=== PATIENT | female | born 1985 | race Caucasian/White ===

== ENCOUNTER → 2017-02-22 | Outpatient (CLI) | payer OTHER ==
[~2017-02-22] MED LIST: CITA40TA12 PO
[2017-02-22 11:35] LABS: URINE APPEARANCE CLEAR (CLEAR); URINE BILIRUBIN NEG (NEG); URINE COLOR YELLOW; URINE NITRITE NEG (NEG); URINE PH 6.5 (4.5-7.5); URINE SPECIFIC GRAVITY 1.014 (1.000-1.030); UROBILINOGEN NEG (NEG)
[2017-02-22 11:49] LABS: MANUAL MICROSCOPIC REQUIRED? NO; REVIEW REQ? NO
== END | disposition home or self-care (01) ==
LOC: C.LABSPEC 10:56
PROVIDERS: ATTEND Obstetrics & Gynecology
DX: Z34.81 Encounter for supervision of other normal pregnancy, first trimester (principal)

== ENCOUNTER → 2017-02-26 | Outpatient (CLI) | payer OTHER | END | disposition home or self-care (01) | LOC: C.PAPS 07:51 | PROVIDERS: ATTEND Obstetrics & Gynecology | DX: Z34.81 Encounter for supervision of other normal pregnancy, first trimester (principal) ==

== ENCOUNTER → 2017-02-26 | Outpatient (CLI) | payer OTHER ==
[2017-02-26 17:33] LABS: BASO % 0.3 %; BASO ABS # 0.02 K/uL (0-0.2); COMPLETE YES; EOS % 1.1 %; HEMATOCRIT 39.5 % (37-47); IG% 0.3 %; LYMPH % 36.4 %; LYMPH ABS # 2.69 K/uL (1.2-3.4); MEAN CELL VOLUME 86.4 fL (80-100); MEAN CORPUSCULAR HEMOGLOBIN 30.2 pg (25-34); MEAN CORPUSCULAR HGB CONC 34.9 g/dl (32-36); MEAN PLATELET VOLUME 9.8 fL (7.4-10.4); MONO % 6.1 %; NEUT % 55.8 %; PLATELET COUNT 424 K/uL (130-400); RED BLOOD COUNT 4.57 M/uL (4.2-5.4); WHITE BLOOD COUNT 7.38 K/uL (4.8-10.8)
[2017-03-01 11:51] LABS: CHLAMYDIA TRACH RNA*** NOT DETECTED (NOT DETECTED); GC (NEIS GONORRHOEAE)RNA** NOT DETECTED (NOT DETECTED)
== END | disposition home or self-care (01) ==
LOC: C.LAB1850 16:23
PROVIDERS: ATTEND Obstetrics & Gynecology
DX: Z34.81 Encounter for supervision of other normal pregnancy, first trimester (principal)

== ENCOUNTER → 2017-06-22 | Outpatient (CLI) | payer OTHER ==
[2017-06-22 14:24] LABS: URINE APPEARANCE CLEAR (CLEAR); URINE BILIRUBIN NEG (NEG); URINE COLOR YELLOW; URINE NITRITE POS (NEG); URINE PH 6.5 (4.5-7.5); URINE SPECIFIC GRAVITY 1.014 (1.000-1.030); UROBILINOGEN NEG (NEG)
[2017-06-22 14:30] LABS: MANUAL MICROSCOPIC REQUIRED? NO; REVIEW REQ? NO
== END | disposition home or self-care (01) ==
LOC: C.LABSPEC 13:53
PROVIDERS: ATTEND Obstetrics & Gynecology
DX: Z34.82 Encounter for supervision of other normal pregnancy, second trimester (principal)

== ENCOUNTER → 2017-07-06 | Outpatient (CLI) | payer OTHER ==
[2017-07-06 12:08] LABS: HEMATOCRIT 37.2 % (37-47)
== END | disposition home or self-care (01) ==
LOC: C.LAB1850 10:52
PROVIDERS: ATTEND Obstetrics & Gynecology
DX: Z34.82 Encounter for supervision of other normal pregnancy, second trimester (principal); Z3A.00 Weeks of gestation of pregnancy not specified

== ENCOUNTER → 2017-07-20 | Outpatient (CLI) | payer OTHER ==
[~2017-07-20] MED LIST changes: +MTR600X PO; +OXYC-57 PO; +PRENTAB26 PO
== END | disposition home or self-care (01) ==
LOC: C.LABSPEC 13:50
PROVIDERS: ATTEND Obstetrics & Gynecology
DX: O23.40 Unspecified infection of urinary tract in pregnancy, unspecified trimester (principal); Z3A.00 Weeks of gestation of pregnancy not specified

== ENCOUNTER → 2017-08-27 | Outpatient (CLI) | payer OTHER ==
[~2017-08-27] MED LIST changes: -MTR600X PO; -OXYC-57 PO; -PRENTAB26 PO
== END | disposition home or self-care (01) ==
LOC: C.LABSPEC 13:45
PROVIDERS: ATTEND Obstetrics & Gynecology
DX: Z34.83 Encounter for supervision of other normal pregnancy, third trimester (principal)

== ENCOUNTER 2017-09-17 08:38 | Inpatient (IN) | payer OTHER ==
[2017-09-17] VITALS (7 sets, daily range): BP systolic 113–127; BP diastolic 72–82; PULSE 75–80; TEMP 36.4–36.9; O2SAT 96–98; Ht 162.6 cm; Wt 107.3 kg
[~2017-09-17] VITALS: Ht 162.6 cm; Wt 107.3 kg
[~2017-09-17 08:38] MED LIST changes: +CEFAZOLIN IV 3,000 MG in SYRINGE 0 ML IV SCH
[2017-09-17] MEDS ORDERED: PRENTAB26 PO (09:20)
[2017-09-17] MEDS ORDERED: LACTATED RINGER'S 1000ML 1,000 ML IV PRN (09:35)
[2017-09-17] MEDS ORDERED: LACTATED RINGER'S 1000ML 1,000 ML IV SCH (09:35)
[2017-09-17] MEDS ORDERED: LACTATED RINGER'S 1000ML 500 ML IV PRN ×2 (09:38→15:45)
[2017-09-17] MEDS ORDERED: OXYTOCIN 30 UNITS/500ML NSS IV PRN (09:45)
[2017-09-17 10:01] LABS: HEMATOCRIT 35.6 % (37-47); HEMOGLOBIN 12.1 g/dL (12.0-16.0); MEAN CORPUSCULAR HEMOGLOBIN 31.6 pg (25-34); MEAN PLATELET VOLUME 9.6 fL (7.4-10.4); PLATELET COUNT 350 K/uL (130-400); RED CELL DISTRIBUTION WIDTH CV 15.8 % (11.5-14.5); RED CELL DISTRIBUTION WIDTH SD 52.7 fL (36.4-46.3); WHITE BLOOD COUNT 8.24 K/uL (4.8-10.8)
[2017-09-17] MEDS ORDERED: CITRIC ACID/SODIUM CITRATE 15 ML UDC PO ONE (11:45)
[2017-09-17] MEDS ORDERED: LACTATED RINGER'S 1000ML 1,000 ML IV ONE (11:45)
[2017-09-17] MEDS ORDERED: FENTANYL CITRATE INJ 50 MCG/1 ML 2 ML VIAL ONE ×2 (13:51→15:10)
[2017-09-17] MEDS ORDERED: MoRPHine SULFATE PF 1 MG/ML 10 ML AMP/VIAL ONE (13:52)
[2017-09-17] MEDS ORDERED: OXYTOCIN INJ 10 UNITS/ML VIAL ONE ×2 (13:55→15:12)
[2017-09-17] MEDS ORDERED: PROPOFOL IV EMULSION 10 MG/ML 20 ML VIAL IV ONE (14:58)
[2017-09-17] MEDS ORDERED: CISATRACURIUM BESYLATE IV SOLN 2 MG/ML 10 ML VIAL ONE (14:58)
[2017-09-17] MEDS ORDERED: MIDAZOLAM HCL 1 MG/ML 2ML VIAL ONE (14:59)
[2017-09-17] MEDS ORDERED: SUPERCREAM 0.870 % 15GM JAR EXT PRN (15:30)
[2017-09-17] MEDS ORDERED: DIPHTHERIA/TETANUS/PERTUSSIS 0.5 ML SYR/VIAL IM. ONE (15:30)
[2017-09-17] MEDS ORDERED: LANOLIN OINT EXT PRN (15:30)
[2017-09-17] MEDS ORDERED: HYDROCORTISONE ACETATE 25 MG SUPP PR PRN (15:30)
[2017-09-17] MEDS ORDERED: BENZOCAINE 20% AER SPR 82.5 GM CAN EXT PRN (15:30)
[2017-09-17] MEDS ORDERED: GLYCOPYRROLATE INJ 0.2 MG/ML VIAL ONE (15:31)
[2017-09-17] MEDS ORDERED: NEOSTIGMINE METHYLSULFATE 5 MG/5 ML SYR ONE (15:31)
--- NOTE | 2017-09-17 15:38 | [facility] Post Operative Brief Note ---
Immediate Operative Summary Operative Date Sep 17, 2017. Pre-Operative Diagnosis 1) Term 2) Unstable lie 3) Desired permanent sterilization Post-Operative Diagnosis same Procedure(s) Performed 1) Primary LCT C/S 2) Bilateral tubal ligation Surgeon Jennifer Shoe Turner Surgeon(s) None Estimated Blood Loss 800 Findings See Below (normal appering tubes and ovaries bilterally, bilateral segment of tube removed) viable female inant, Apgars 8/9; gasses pending Fluids (cc crystalloids) 1700 Specimens 1) Cord gasses 2) Cord Blood 3) Bilateral segment of fallopian tubes Drains Tillman to gravity Anesthesia Type General Complication(s) none Disposition Accompanied Pt To Recover: yes Disposition: L&D
[2017-09-17] MEDS ORDERED: DC INTRASPINAL MORPHINE SCH (15:45)
[2017-09-17] MEDS ORDERED: PROMETHAZINE HCL INJ 25 MG in SODIUM CHLORIDE 0.9% 50ML 50 ML IV PRN (15:45)
[2017-09-17] MEDS ORDERED: NO NARCOTICS OR SEDATIVES SCH (15:45)
[2017-09-17] MEDS ORDERED: NALBUPHINE HCL INJ 10 MG/ML AMP IV PRN (15:45)
[2017-09-17] MEDS ORDERED: SODIUM CHLORIDE 0.9% 1000ML 1,000 ML IV PRN (15:45)
[2017-09-17] MEDS ORDERED: HYDROmorphone INJ 2 MG/ML SYR/VIAL IV PRN (15:45)
[2017-09-17] MEDS ORDERED: ONDANSETRON INJ 2 MG/ML 2 ML VIAL IV PRN (15:45)
[2017-09-17] MEDS ORDERED: DiphenhydrAMINE HCL 50 MG/ML VIAL IV PRN (15:45)
[2017-09-17] MEDS ORDERED: NALOXONE HCL 0.4 MG/1 ML VIAL/CARP IV PRN ×2 (15:45→16:30)
[2017-09-17] MEDS ORDERED: MoRPHine SULFATE PF 1 MG/ML 10 ML AMP/VIAL EPI PRN (15:45)
[2017-09-17] MEDS ORDERED: NALOXONE HCL INJ 1 MG in SODIUM CHLORIDE 0.9% 1000ML 1,000 ML IV PRN ×4 (15:45)
[2017-09-17] MEDS ORDERED: NALOXONE HCL INJ 0.08 MG in SYRINGE 1.8 ML IV PRN (15:45)
--- NOTE | 2017-09-17 15:49 | OPERATIVE REPORT ---
DATE OF OPERATION: 09/17/2017 PREOPERATIVE DIAGNOSES: 1. Term . 2. Unstable lie. 3. Desired permanent surgical sterilization. POSTOPERATIVE DIAGNOSES: Same. PROCEDURE PERFORMED: 1. Primary low cervical transverse section. 2. Bilateral tubal ligation. SURGEON: Dr. Rodriguez. ANESTHESIA: General. FINDINGS: After a failed spinal under general anesthesia, we delivered a viable female with Apgars of 8 and 9, weight of 6 pounds 9 ounces. Arterial and venous cord gases pending. Normal-appearing tubes and ovaries bilateral, bilateral segment of fallopian tube removed. PROCEDURE IN DETAIL: The patient was taken to the operating room and initially had a spinal anesthesia placed. After it became apparent that the spinal was unsuccessful, the patient underwent general endotracheal intubation and general anesthesia. A Pfannenstiel type incision was made, underlying subcutaneous tissue was dissected down to the ventral abdominal fascia, which was nicked and opened in a horizontal manner. Preperitoneal fascia was dissected away until the peritoneal cavity was entered and opened in a vertical manner. Bladder blade was placed. Peritoneum overlying the uterus was elevated only opened in a semi-lunar fashion, the inferior margin of which was taken down creating the bladder flap. Uterus was entered sharply and extended in a horizontal fashion manually. Viable female was delivered with the vertex initially in the right lower quadrant, brought to the midline and delivered as a vertex. Cord was clamped and cut. Cord gases and cord blood samples were obtained. The baby was passed off to pediatrics who was in attendance for delivery. The uterus was exteriorized. The placenta was delivered spontaneously. The uterine cavity was wiped clean of any residual blood tissue and/or clot. The uterine incision was then closed with 2 layers of 4-0 Vicryl, the first a running locking stitch, the second an imbricating stitch. Hemostasis achieved. The right fallopian tube was isolated followed to the fimbriated end, a segment of which was elevated, doubly ligated with 0 plain suture, cut and removed from the field. In a similar fashion, left fallopian tube was isolated followed to the fimbriated end, a segment of which was elevated, doubly ligated with 0 plain suture, cut and removed from the field. Hemostasis present. The uterus was returned to the pelvic cavity. Pericolic gutters were cleared bilaterally of any blood tissue and/or clot. The pelvis was thoroughly irrigated with 1000 mL of warm saline. The pedicles from the tubal were inspected for hemostasis, which was not present. There was hemostasis on the uterine suture line. Sponge and needle count was correct. The rectus muscle was then plicated in the midline with a running 2-0 Vicryl stitch. The fascia was closed laterally with a running 0 Vicryl suture. Subcutaneous tissue was irrigated with warm saline and the skin incision was closed with a 4-0 Vicryl subcuticular suture. Sterile dressing was applied. The patient was taken to the recovery room in satisfactory condition. I attest to the content of the Intraoperative Record and any orders documented therein. Any exception s are noted below.
[2017-09-17] MEDS ORDERED: HYDROmorphone INJ 1 MG/ML SYR ONE (15:56)
[2017-09-17] MEDS ORDERED: EpHEDrine SULFATE INJ 50 MG/ML AMP IV PRN (16:05)
[2017-09-17] MEDS: KETOROLAC TROMETHAMINE 30 MG/ML VIAL IV. PRN ×2 (16:17→21:53)
[2017-09-17] MEDS ORDERED: MoRPHine SULFATE 1 MG/ML 50 ML PCA CASS IV PRN (16:30)
[2017-09-17] MEDS: HYDROmorphone INJ 1 MG/ML SYR IV PRN ×3 (16:58→17:51)
[2017-09-17] MEDS: OXYTOCIN INJ 20 UNITS in LACTATED RINGER'S 1000ML 1,000 ML IV SCH (17:16)
--- NOTE | 2017-09-17 17:28 | Anesthesiology Progress Note ---
Anesthesia Post Op Note Date & Time Sep 17, 2017 at 17:25 Vital Signs Pain Intensity: 3.0 Notes Mental Status: alert / awake / arousable, participated in evaluation Pt Amnestic to Procedure: Yes Nausea / Vomiting: adequately controlled Pain: adequately controlled Airway Patency, RR, SpO2: stable & adequate BP & HR: stable & adequate Hydration State: stable & adequate Neuraxial Anesthesia: was administered, sensory block is resolving Anesthetic Complications: no major complications apparent Pt was converted to GETA .Pt had been administered a SAB , which was technically excellent.Twenty five minutes after she still had sensation to painful stimuli,hence the conversion to GA.
[2017-09-18] VITALS (16 sets, daily range): BP systolic 126–167; BP diastolic 77–102; PULSE 71–112; TEMP 36.4–37.1; O2SAT 94–97
[2017-09-18] MEDS ORDERED: INCREMENTAL PCA TITRATION SCH
[2017-09-18] MEDS ORDERED: LOCK-OUT PCA TITRATION SCH
[2017-09-18] MEDS: OXYTOCIN INJ 20 UNITS in LACTATED RINGER'S 1000ML 1,000 ML IV SCH (01:54)
[2017-09-18] MEDS ORDERED: CEFAZOLIN IV 3,000 MG in DEXTROSE 5% 50ML 50 ML IV SCH (06:00)
[2017-09-18 07:04] LABS: BASO % 0.2 %; BASO ABS # 0.02 K/uL (0-0.2); EOS % 0.7 %; EOS ABS # 0.07 K/uL (0-0.5); HEMATOCRIT 29.7 % (37-47); HEMOGLOBIN 9.6 g/dL (12.0-16.0); IG# 0.02 K/uL (0.00-0.02); LYMPH % 14.6 %; MEAN CELL VOLUME 93.1 fL (80-100); MEAN CORPUSCULAR HEMOGLOBIN 30.1 pg (25-34); MEAN CORPUSCULAR HGB CONC 32.3 g/dl (32-36); MEAN PLATELET VOLUME 9.6 fL (7.4-10.4); MONO % 5.5 %; MONO ABS # 0.53 K/uL (0.11-0.59); NEUT % 78.8 %; NEUT ABS # 7.55 K/uL (1.4-6.5); PLATELET COUNT 358 K/uL (130-400); RED CELL DISTRIBUTION WIDTH CV 15.7 % (11.5-14.5); RED CELL DISTRIBUTION WIDTH SD 53.7 fL (36.4-46.3); WHITE BLOOD COUNT 9.59 K/uL (4.8-10.8)
--- NOTE | 2017-09-18 07:19 | Progress Note ---
Subjective Sep 18, 2017. Subjective conversation w/ patient, physical exam Voiding: angel catheter in place Objective Vital Signs Date Time Temp Pulse Resp B/P (MAP) Pulse Ox O2 Delivery O2 Flow Rate FiO2 09/18/17 07:00 16 97 09/18/17 06:00 18 97 09/18/17 05:00 18 95 09/18/17 04:00 18 94 09/18/17 03:25 36.8 71 16 127/80 (96) 97 Room Air 09/18/17 03:00 18 95 09/18/17 02:00 18 97 09/18/17 01:00 16 95 09/18/17 00:00 16 94 09/17/17 23:00 16 96 09/17/17 23:00 36.7 80 16 121/74 (90) 96 Room Air 80 09/17/17 23:00 96 Room Air 09/17/17 22:00 18 96 09/17/17 21:00 20 96 09/17/17 20:00 16 97 09/17/17 19:40 36.4 76 16 127/82 (97) 98 Room Air 09/17/17 19:00 16 98 09/17/17 18:10 97 Room Air 09/17/17 18:10 20 97 09/17/17 18:10 97 Room Air 09/17/17 18:10 36.9 75 20 113/72 (86) 97 Room Air Physical Exam General Appearance: WELL-APPEARING, NO APPARENT DISTRESS Respiratory/Chest: lungs clear Cardiovascular: regular rate, rhythm Fundus: Firm Incision Description: Clean, Dry & Intact (dressing intact) Extremities: no calf tenderness Laboratory Results Last 24 Hours Test 09/17/17 09:43 09/18/17 06:29 White Blood Count 8.24 K/uL 9.59 K/uL Red Blood Count 3.83 M/uL 3.19 M/uL Hemoglobin 12.1 g/dL 9.6 g/dL Hematocrit 35.6 % 29.7 % Mean Corpuscular Volume 93.0 fL 93.1 fL Mean Corpuscular Hemoglobin 31.6 pg 30.1 pg Mean Corpuscular Hemoglobin Concent 34.0 g/dl 32.3 g/dl RDW Standard Deviation 52.7 fL 53.7 fL RDW Coefficient of Variation 15.8 % 15.7 % Platelet Count 350 K/uL 358 K/uL Mean Platelet Volume 9.6 fL 9.6 fL Neutrophils (%) (Auto) 78.8 % Lymphocytes (%) (Auto) 14.6 % Monocytes (%) (Auto) 5.5 % Eosinophils (%) (Auto) 0.7 % Basophils (%) (Auto) 0.2 % Neutrophils # (Auto) 7.55 K/uL Lymphocytes # (Auto) 1.40 K/uL Monocytes # (Auto) 0.53 K/uL Eosinophils # (Auto) 0.07 K/uL Basophils # (Auto) 0.02 K/uL Immature Granulocyte % (Auto) 0.2 % Immature Granulocyte # (Auto) 0.02 K/uL Assessment and Plan Post-Op Day#: 1 Continue Routine Care: - discussed surgery and findings with patient - begin ambulation - routine post C/S care - doing well
[2017-09-18] MEDS ORDERED: DiphenhydrAMINE HCL 50 MG/ML VIAL IV PRN (08:00)
[2017-09-18] MEDS: FERROUS SULFATE 325 MG TAB PO SCH (08:00)
[2017-09-18] MEDS: KETOROLAC TROMETHAMINE 30 MG/ML VIAL IV. PRN (08:01)
[2017-09-18] MEDS ORDERED: KETOROLAC TROMETHAMINE 30 MG/ML VIAL IV. PRN (09:00)
[2017-09-18] MEDS ORDERED: ONDANSETRON INJ 2 MG/ML 2 ML VIAL IV PRN (09:00)
[2017-09-18] MEDS ORDERED: OXYCODONE/ACETAMINOPHEN 5-325 TAB PO PRN (09:00)
[2017-09-18] MEDS: OXYCODONE/ACETAMINOPHEN 5-325 TAB PO PRN ×3 (11:30→21:35)
[2017-09-18] MEDS: IBUPROFEN 600 MG TAB PO PRN ×2 (17:46→21:34)
[2017-09-18] MEDS ORDERED: SENNA 8.6 MG TAB PO SCH (22:00)
[2017-09-18] MEDS ORDERED: MAGNESIUM HYDROXIDE SUSP 30 ML UDC PO SCH (22:00)
[2017-09-19] MEDS: IBUPROFEN 600 MG TAB PO PRN ×3 (04:13→13:34)
[2017-09-19] MEDS: OXYCODONE/ACETAMINOPHEN 5-325 TAB PO PRN ×2 (04:13→13:34)
[2017-09-19 07:00] LABS: HEMATOCRIT 27.5 % (37-47); HEMOGLOBIN 9.2 g/dL (12.0-16.0)
[2017-09-19 08:00] VITALS: BP 134/84; PULSE 83; TEMP 36.9
--- NOTE | 2017-09-19 08:07 | Progress Note ---
Subjective Sep 19, 2017. Subjective conversation w/ patient, physical exam, lab review Ambulation: ambulating normally Voiding: no incontinence Diet Tolerance: Regular Diet Lochia: Small Objective Vital Signs Date Time Temp Pulse Resp B/P (MAP) Pulse Ox O2 Delivery O2 Flow Rate FiO2 09/18/17 23:40 96 Room Air 09/18/17 23:40 36.8 84 18 126/77 (93) 96 Room Air 09/18/17 19:00 36.4 112 20 142/92 (109) Room Air 09/18/17 18:00 36.7 87 20 167/102 (123) Room Air 09/18/17 15:30 36.4 97 20 147/96 (113) Room Air 09/18/17 15:30 Room Air 09/18/17 11:35 37.1 78 20 130/80 (97) 97 Room Air 09/18/17 08:45 18 97 Physical Exam General Appearance: WELL-APPEARING Abdomen: non tender Fundus: Firm Extremities: no calf tenderness Laboratory Results Last 24 Hours Test 09/19/17 06:18 Hemoglobin 9.2 g/dL Hematocrit 27.5 % Assessment and Plan Post-Op Day#: 2 Continue Routine Care: Blood pressures were elevated a bit yesterday but have come down significantly patient well wishes discharged today
[2017-09-19] MEDS ORDERED: MTR600X PO (08:08)
[2017-09-19] MEDS ORDERED: OXYC-57 PO (08:09)
--- NOTE | 2017-09-19 08:09 | Discharge Instructions ---
Discharge Instructions Date of Service Sep 19, 2017. Admission Reason for Admission: Diet Controlled Gdm In Third Trimester Discharge Discharge Diagnosis / Problem: C/S Discharge Goals Goal(s): Routine recovery after Activity Recommendations Activity Limitations: per Instructions/Follow-up section ACTIVITY RECOMMENDATIONS: * Gradual return to full activity over the next 2-3 weeks. * No lifting - nothing heavier than baby over the next 2-3 weeks. * Do not engage in vigorous exercise, sexual activity or sports until cleared by your physician. * Do not drive or operate any motorized equipment until cleared by your physician. * You may shower/bathe daily. MEDICATIONS: For discomfort or pain, you may use Acetaminophen (Tylenol), Ibuprofen (Advil), or Naproxen (Aleve) following the package directions. For constipation you may use Colace following the package directions. BREAST CARE: If you are not breast feeding: * Wear a supportive bra 24 hours a day for one to two weeks. * Avoid stimulating your breasts and nipples as much as possible during the first few weeks after delivery. * When taking a shower, have the warm water hit your back, not breasts. * When your breasts feel full, apply ice packs. Usually three to four times a day helps ease the discomfort. * Take a mild pain medication (Tylenol / Motrin) when you are uncomfortable. If breast feeding: * Use breast milk to lubricate nipples. Lansinoh cream may be used for sore nipples. You do not need to remove cream prior to breast feeding. If using a different brand of cream, check the label for directions regarding removal of cream prior to nursing. * Wear a supportive bra. * If having problems with breasts or breast feeding, call a universal branch consultant or your health care provider. SPECIAL CARE INSTRUCTIONS: When you are discharged from the hospital, it is important for you to follow the instructions listed below: * During the first week at home, you should be able to care for yourself and your baby. In addition, the usual light household activities are encouraged. * Limit your activities to the way you feel. Do not try to clean the house or move furniture. Be sensible. * If you actively engage in sports and have done so up until the time of your delivery, you may resume these activities as soon as you feel able. This may take up to one month or even longer. Use good judgment. * Continue to take your vitamins for at least six weeks after the of your baby. * Your diet need not be limited unless you were on a special diet before your delivery. Breast-feeding mothers need around 2500 calories per day and at least 64-80 ounces of fluid per day (8 to 10 glasses). * You should eat foods from the four major food groups. Crash diets or fad diets are to be avoided. Eating lean meats, fresh fruits and vegetables, low-fat dairy products, high fiber foods and a regular exercise program, will help you get back to your pre- weight without putting your health at risk. * Constipation is sometimes a problem after delivery. Take a mild laxative as needed. If breast feeding, Milk of Magnesia is acceptable to use. You may use a suppository or Fleets enema. * A daily shower or tub bath is suggested. Wash incision daily with warm soapy water and pat dry. It doesn't need to be covered unless drainage is present. * A bloody vaginal discharge will usually continue until around four weeks . A small amount of bleeding may continue for as long as six weeks. Vaginal discharge changes from the bright red bleeding after delivery to pink then brownish and finally yellowish-pink before becoming white and disappearing. * Bleeding may increase with activity. Your first period may come in 4-8 weeks. If you are breast feeding, your period may be delayed even longer. * Puckett (sex) can begin whenever both you and your partner feel comfortable and do not have any form of genital infection. It is recommended that you wait at least six weeks for internal and external healing to occur. If you have questions, please talk to your health care practitioner. A condom should be used to prevent infection and . * Foreplay, gentle intercourse and lubrication is very important the first several times to prevent pain. A water-based lubricant such as K-Y jelly or Astroglide may be used. * If you have RH negative blood and your baby is RH positive, you will receive RHOGAM by injection prior to discharge. The nurse will give you a card to keep with you that has the date and place that you received RHOGAM after delivery. * During your care, you had a Rubella screen done to check for the presence of rubella antibodies in your blood. If your test was negative, you will receive a Rubella vaccine prior to discharge. This vaccine may cause a fever, soreness at the injection site and flu-like symptoms. If these symptoms persist, notify your health care practitioner. is not advised for one month after a Rubella vaccine. * Verbalizes understanding of car seat law as reviewed with patient nursing. * Car Seat hand-out given and reviewed with patient by nursing. * Shaken baby information reviewed with patient by nursing. Call you doctor if: * Heavy bleeding (saturating several pads an hour) or passing clots the size of your fist. * A fever >101 degrees F (38.3 degrees C) on two occasions four hours apart and /or chills. * Unusual pain in the pelvic or vaginal areas. * Call the doctor for any increased redness, drainage or swelling around the incision and any pain unrelieved by prescribed pain medication. * "Baby Blues" lasting longer than two weeks. If you have any questions or concerns, call your health care practitioner at . FOLLOW UP VISIT: * Please call the office at to schedule a 6 week examination. It is important you keep this appointment. It is important for you to make arrangements for either yearly or twice yearly check-ups thereafter. . Current Hospital Diet Patient's current hospital diet: Regular OB Diet Discharge Diet Recommended Diet: Regular OB Diet Procedures Procedures Performed: Primary caesarean section and bilateral tubal ligation Pending Studies Studies pending at discharge: no Medical Emergencies . Who to Call and When: Medical Emergencies: If at any time you feel your situation is an emergency, please call [phone] immediately. . Non-Emergent Contact Non-Emergency issues call your: Pre Sales Network Engineer . . "Provider Documentation" section prepared by Earle Borges. .
[2017-09-19] MEDS: FERROUS SULFATE 325 MG TAB PO SCH (08:48)
[2017-09-19 12:50] VITALS: BP_DIAS 84; PULSE 83; TEMP 36.9
== END 2017-09-19 14:20 | disposition home or self-care (01) | DRG 766 ==
LOC: C.OPB 08:38 → C.LD 08:39 → C.OPB 09:38 → C.LD 09:38 → C.OBG 18:17
PROVIDERS: ADMIT Obstetrics & Gynecology; ATTEND Obstetrics & Gynecology
PROC: 3E033VJ Introduction of Other Hormone into Peripheral Vein, Percutaneous Approach (ICD-10-PCS; 2017-09-17)
PROC: 10D00Z1 Extraction of Products of Conception, Low, Open Approach (ICD-10-PCS; principal; 2017-09-17 13:30)
PROC: 0UB70ZZ Excision of Bilateral Fallopian Tubes, Open Approach (ICD-10-PCS; principal; 2017-09-17 13:30)
DX: O32.0XX0 Maternal care for unstable lie, not applicable or unspecified (principal); O48.0 Post-term pregnancy; O24.420 Gestational diabetes mellitus in childbirth, diet controlled; Z30.2 Encounter for sterilization; Z3A.40 40 weeks gestation of pregnancy; Z37.0 Single live birth